=== PATIENT | male | born 1990 | race Two or more races ===

== ENCOUNTER 2022-01-06 15:48 | Emergency (ER) | payer MEDICAID, SELFPAY ==
[2022-01-06 19:08] VITALS: BP 129/98; PULSE 62; RESP 18; TEMP 37.2; O2SAT 96; BMI 26.6
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
[2022-01-06] MEDS: Amoxicillin/Potassium Clav 875 MG TABLET PO (20:24)
[2022-01-06] MEDS: Rabies Vaccine (PCEC)/PF 1 ML VIAL IM (20:24)
[2022-01-06] MEDS: Rabies Immune Globulin/PF 900 UNIT/3 ML VIAL 1632.94 UNIT IM (20:26)
[2022-01-06 21:38] VITALS: BP 129/73; PULSE 68; RESP 18; TEMP 36.7; O2SAT 100
--- NOTE | 2022-01-06 22:15 | PC.NURSE ---
Rabies vaccine packet completed by this RN and faxed to [facility]. Pt discharged with instructions to receive follow up vaccinations.
== END 2022-01-06 22:19 | disposition home or self-care (01) ==
PROVIDERS: Emergency Provider Internal Medicine
DX: S61.253A Open bite of left middle finger without damage to nail, initial encounter (principal); W55.01XA Bitten by cat, initial encounter; Y93.89 Activity, other specified; Y92.238 Other place in hospital as the place of occurrence of the external cause; Y99.9 Unspecified external cause status; Z20.3 Contact with and (suspected) exposure to rabies
CPT/HCPCS: 90375; 90471; 90675; 96372; 99283; 99284

== ENCOUNTER 2022-01-09 06:24 | Emergency (ER) | payer MEDICAID, SELFPAY ==
--- NOTE | ~2022-01-09 | CT_ITS ---
EXAMINATION: CT ABDOMEN AND PELVIS WITHOUT CONTRAST CLINICAL INFORMATION: Left flank pain COMPARISON: None TECHNIQUE: Multidetector volumetric imaging was performed from the superior aspect of the liver through the pubic symphysis. Sagittal and coronal reformatted images were obtained on the technologist's workstation. This CT examination was performed using dose optimization techniques as appropriate, variously including the following: *Automated exposure control *Adjustment of mA and/or kV according to patient size (this includes techniques or standardized protocols for targeted exams where dose is matched to indication/reason for exam; i.e. extremities or head) *Use of iterative reconstruction technique DLP: 541 mGy-cm FINDINGS: LUNG BASES: The visualized lung bases are unremarkable. LIVER, GALLBLADDER, AND BILIARY TREE: The liver is normal in size, shape, and attenuation. No focal hepatic lesion or biliary ductal dilatation is present. The gallbladder is unremarkable with no evidence of radiopaque gallstones, gallbladder wall thickening, or obvious pericholecystic inflammatory changes. PANCREAS: Unremarkable. SPLEEN: Unremarkable. ADRENAL GLANDS: Unremarkable. KIDNEYS AND URETERS: There is a 2 mm stone in the lower pole of the left kidney. There is mild left hydronephrosis and ureteral dilatation from a 3 mm left distal ureteral stone. The right kidney is normal. BLADDER: Unremarkable. GASTROINTESTINAL TRACT: The small and large bowel are unremarkable. The appendix is unremarkable. ABDOMINAL WALL: No significant hernia is appreciated. LYMPH NODES: Normal. VASCULAR: Unremarkable. PELVIC VISCERA: Unremarkable. OSSEOUS STRUCTURES: Unremarkable. CT/CT abdomen pelvis wo IV con IMPRESSION: Mild left hydronephrosis and ureteral dilatation from a small 3 mm left distal ureteral stone. Small left renal stone. Fleischner guidelines were followed.
[2022-01-09 06:58] VITALS: BP 148/105; PULSE 71; RESP 20; TEMP 36.8; O2SAT 97; BMI 26.6
[2022-01-09 07:32] VITALS: BP 130/82; PULSE 56; RESP 14; TEMP 37.1; O2SAT 100
--- NOTE | 2022-01-09 07:46 | ED.GENADULT ---
HPI - General Adult General Chief complaint: General Medical Stated complaint: Abd pain Time Seen by Provider: 01/09/22 07:45 Source: patient Mode of arrival: ambulatory Limitations: no limitations History of Present Illness HPI narrative: 31-year-old male came in for evaluation of abdominal pain. Pain started at 04:30 while he was sleeping, pain is mostly in the left flank area radiated to the left lower quadrant area and radiated to the left testicle, pain has been constant for the past 4 hours, described as severe dull aching pain, pain was associated with nausea, no relieving factor, no aggravating factor. Patient had similar pain 11 years ago when he had a kidney stone. No dysuria, no frequency, no penile discharge, no risk for STDs. Never had abdominal surgery in the past. Patient was bitten by cat 2 days ago patient is on amoxicillin and is due today for 2nd rabies immunization. Related Data Previous Rx's Medication Instructions Recorded amoxicillin 875 mg-potassium 1 tab PO BID cat bite 10 days #20 01/06/22 clavulanate 125 mg tablet tabs prednisone 10 mg tablet 10 mg PO BID #6 tabs 01/09/22 tamsulosin 0.4 mg capsule (Flomax) 0.4 mg PO DAILY #6 caps 01/09/22 Allergies Allergy/AdvReac Type Severity Reaction Status Date / Time No Known Allergies Allergy Verified 01/06/22 19:18 Review of Systems Review of Systems: All other systems are reviewed and are negative Constitutional: Reports as per HPI and Reports no additional constitutional complaints Eyes: Reports as per HPI and Reports no additional eye complaints Reports system reviewed and no additional complaints, except as documented Cardiovascular: Reports as per HPI and Reports no additional cardiovascular complaints Respiratory: Reports as per HPI and Reports no additional respiratory complaints Gastrointestinal: Reports as per HPI and Reports no additional gastrointestinal complaints Genitourinary: Reports no additional female genitourinary complaints Musculoskeletal: Reports no additional musculoskeletal complaints Skin/Breast: Reports system reviewed and no additional complaints, except as docu Psychiatric: Reports no additional psychiatric complaints Endocrine: Reports no additional endocrine complaints Hematologic/Lymphatic: Reports no additional hematologic/lymphatic complaints Allergic/Immunologic: Reports no additional allergic/immunologic complaints Reports system reviewed and no additional complaints, except as documented and Reports Abnormal speech present [facility] Social History Social History Advance Directives: No Advance Directives Information Provided: No Physical Exam ED Vital Signs: Vital Signs - 24 hr 01/09/22 06:58 01/09/22 07:32 Temperature 98.2 F 98.7 F Pulse Rate 71 56 Respiratory Rate 20 14 Blood Pressure 148/105 H 130/82 Pulse Oximetry 97 100 Oxygen Delivery Method Room Air Room Air BMI result Body Mass Index 26.6 Vital signs have been reviewed as appeared to be correct. Blood pressure normal. Heart rate normal. Respiration rate normal. Temperature normal. Oxygen saturation normal. Appearance: Alert. Oriented X3. No acute distress. Head: Normal external exam. Normocephalic. Atraumatic. No Yao signs noted. No raccoon eyes noted Eyes: PERRLA. EOMI. Conjunctiva and sclera normal. Eyelids normal. ENT: TM's Normal. Pharynx normal. Uvula midline. Moist mucous membranes. No trismus noted. No drooling noted. No muffled voice noted. Neck: Normal inspection. Neck supple. FROM. No adenopathy. Thyroid Normal. No meningeal signs. No neck mass noted. CVS: Normal heart rate and rhythm. Heart sound normal. No murmurs noted. Pulses normal throughout. Respiratory: No respiratory distress. Painless inspiration. Breath sounds normal. No wheezes/rales/rhonchi noted. Chest nontender. No accessory muscle usage noted or decreased air movement noted. Abdomen: Soft, left lower quadrant tenderness, no rebound tenderness, no guarding.. Bowel sounds normal in all 4 quadrants. No distention noted. No organomegaly noted. No visible injury noted. Back: Left CVA tenderness. Full range of motion noted. exam: Intact cremasteric reflex bilaterally, testicular swelling or tenderness. Skin: Skin warm and dry. Normal skin color. Normal skin turgor. No rashes/lesions/lacerations noted. Extremities: No lower extremity edema. Extremities exhibit normal range of motion. Extremities nontender. Neuro: Oriented X 3. Cranial nerve exam: II-XII are grossly intact No motor deficit. No sensory deficit. Reflexes normal. Course Course Course Narrative: Left flank pain due to 3 mm distal left ureteral stone. Will start the patient on couple days of prednisone and Flomax and was encouraged to drink plenty of fluid patient has no urinary symptoms, no dysuria or urinary frequency. Patient is due for 2nd rabies vaccination after was bitten by a cat with unclear immunization patient is on Augmentin for prophylactic cat bite infection. Medical Decision Making Medical Records Medical records reviewed: Yes I reviewed the patient's medical records. Lab Data Lab results reviewed: Yes I reviewed the patient's lab results. Result diagrams: 01/09/22 08:16 01/09/22 08:16 Labs: Lab Results 01/09/22 01/09/22 01/09/22 Range/Units 08:16 08:16 08:30 WBC 10.5 (4.8-10.8) X10*3/uL RBC 5.47 (4.60-5.80) X10*6/uL Hgb 16.5 (14.0-18.0) g/dl Hct 46.7 (42.0-52.0) % MCV 85.4 (80.0-98.0) fL MCH 30.2 (27.0-33.0) pg MCHC 35.3 (31.0-36.0) g/dl RDW 11.4 (11.0-16.0) % Plt Count 232 (160-400) X10*3/uL MPV 9.4 (9.4-12.4) fL Immature Gran % (Auto) 0.3 (0.0-0.4) % Neut % (Auto) 82.2 H (45-73) % Lymph % (Auto) 10.6 L (20-40) % Atkinson % (Auto) 6.0 (2-11) % Eos % (Auto) 0.6 (0-4) % Baso % (Auto) 0.3 (0-2) % Lymph # (Auto) 1.1 L (1.2-4.9) X10*3/uL Atkinson # (Auto) 0.6 (0.1-1.2) X10*3/uL Eos # (Auto) 0.1 (0.0-0.4) X10*3/uL Baso # (Auto) 0.0 (0.0-0.2) X10*3/uL Abs Immat Gran (auto) 0.03 (0.00-0.03) X10*3/uL Absolute Neuts (auto) 8.6 H (2.0-8.3) x10*3/uL Absolute Nucleated RBC 0.000 (0.0-0.012) X10*3/uL Nucleated RBC % (auto) 0.0 (0.0-0.2) /100WBC Sodium 141 (135-145) mmol/L Potassium 4.7 (3.3-5.1) mmol/L Chloride 103 (96-108) mmol/L Carbon Dioxide 26 (22-29) mmol/L Anion Gap 17 (12-20) BUN 22 H (9-16) mg/dL Creatinine 1.23 (0.5-1.4) mg/dL Estim Creat Clear Calc 87.8 Estimated GFR > 60 Random Glucose 99 (60-115) mg/dL Calcium 10.2 (8.4-10.2) mg/dL Total Bilirubin 1.0 (0.0-1.0) mg/dL Direct Bilirubin 0.4 (0.0-0.5) mg/dL AST 30 (5-37) U/L ALT 29 (0-40) U/L Alkaline Phosphatase 87 (39-117) U/L Total Protein 7.7 (6.5-8.0) g/dL Albumin 4.7 (3.5-5.0) g/dL Lipase 22 (8-78) U/L Urine Color Yellow Urine Appearance Clear Urine pH 7.0 (5.0-9.0) Ur Specific [place] 1.020 (1.005-1.025) Urine Protein Trace (Neg-Trace) mg/dL Urine Glucose (UA) Negative (Negative) mg/dL Urine Ketones 40 (Negative) mg/dL Urine Blood Large (3+) H (Negative) Urine Nitrite Negative (Negative) Ur Leukocyte Esterase Trace H (Negative) Urine RBC >20 H (0-2) /HPF Urine WBC 0-5 (0-5) /HPF Ur Squamous Epith Cells 0-2 (0-2) /HPF Urine Bacteria None Seen (None Seen) Hyaline Casts 3-5 (0-2) /LPF Imaging Data CT abdomen and pelvis: Attestation: I personally reviewed and interpreted this imaging study as follows: Radiologist's impression: Mild left hydronephrosis and ureteral dilatation from a small 3 mm left distal ureteral stone. Small left renal stone. Fleischner guidelines were followed. Discharge Plan Discharge Clinical Impression: Left ureteral stone, Cat bite of finger Patient Disposition: Home, Self-Care Instructions: Ureteral Stones (ED) Prescriptions: New tamsulosin [Flomax] 0.4 mg capsule 0.4 mg PO DAILY Qty: 6 0RF prednisone 10 mg tablet 10 mg PO BID Qty: 6 0RF No Action amoxicillin-pot clavulanate 875-125 mg tablet 1 tab PO BID 10 Days Qty: 20 0RF Referrals: [facility] [Primary Care Provider] - David Roger MD [Physician] -
[2022-01-09 08:20] LABS: MANUAL DIFF FLAG NO
[2022-01-09 08:21] LABS: Basophils Percent Auto 0.3 % (0-2); Eosinophils Absolute Auto 0.1 X10*3/uL (0.0-0.4); Eosinophils Percent Auto 0.6 % (0-4); Hematocrit 46.7 % (42.0-52.0); Hemoglobin 16.5 g/dl (14.0-18.0); Imm Gran Abs Auto 0.03 X10*3/uL (0.00-0.03); Imm Gran Pct Auto 0.3 % (0.0-0.4); Lymphocytes Absolute Auto 1.1 X10*3/uL (1.2-4.9); Lymphocytes Percent Auto 10.6 % (20-40); Mean Corpuscular HGB Conc 35.3 g/dl (31.0-36.0); Mean Corpuscular Hemoglobin 30.2 pg (27.0-33.0); Mean Corpuscular Volume 85.4 fL (80.0-98.0); Mean Platelet Volume 9.4 fL (9.4-12.4); Monocytes Absolute Auto 0.6 X10*3/uL (0.1-1.2); Neutrophils Absolute Auto 8.6 x10*3/uL (2.0-8.3); Neutrophils Percent Auto 82.2 % (45-73); Platelet Count 232 X10*3/uL (160-400); Red Blood Count 5.47 X10*6/uL (4.60-5.80); Red Cell Distribution Width 11.4 % (11.0-16.0); White Blood Count 10.5 X10*3/uL (4.8-10.8)
[2022-01-09 08:38] LABS: Appearance Urine Clear; Color Urine Yellow; Glucose Urine UA Negative (Negative); Leukocyte Esterase Urine Trace (Negative); Nitrite Urine Negative (Negative); UMIC TRIGGER UACC YES; Urine Blood Large (3+) (Negative); Urine Ketones 40 mg/dL (Negative); Urine Protein Trace mg/dL (Neg-Trace)
[2022-01-09 08:43] LABS: Bacteria Urine None Seen (None Seen); RBC Urine >20 /HPF (0-2); Squamous Epithelial Cell Urine 0-2 /HPF (0-2); WBC Urine 0-5 /HPF (0-5)
[2022-01-09 08:46] LABS: Alanine Aminotransferase 29 U/L (0-40); Albumin Level 4.7 g/dL (3.5-5.0); Alkaline Phosphatase 87 U/L (39-117); Anion Gap 17 (12-20); Aspartate Amino Transferase 30 U/L (5-37); Bilirubin Direct 0.4 mg/dL (0.0-0.5); Blood Urea Nitrogen 22 mg/dL (9-16); Calcium 10.2 mg/dL (8.4-10.2); Carbon Dioxide 26 mmol/L (22-29); Chloride 103 mmol/L (96-108); Creatinine Clr Calc Pharmacy 87.8; Estimated Glomerular Filt Rate > 60; Glucose Random 99 mg/dL (60-115); Lipase 22 U/L (8-78); Potassium 4.7 mmol/L (3.3-5.1); Sodium 141 mmol/L (135-145); Total Protein 7.7 g/dL (6.5-8.0)
[2022-01-09] MEDS: Rabies Vaccine (PCEC)/PF 1 ML VIAL IM (10:12)
--- NOTE | 2022-01-09 10:18 | PC.NURSE ---
patient a/ox4 . Patient given Rabies vaccination according to schedule . Patient was offered pain medication as ordered but declined stating his pain had resolved . went over discharge instructions as ordered by provider . Patient to return to same day for subsequent Rabies sequence . patient aware of plan of care . patient has no questions at this time .
== END 2022-01-09 10:22 | disposition home or self-care (01) ==
PROVIDERS: Emergency Provider Emergency Medicine
DX: N13.2 Hydronephrosis with renal and ureteral calculous obstruction (principal); W55.01XD Bitten by cat, subsequent encounter; Z20.3 Contact with and (suspected) exposure to rabies
CPT/HCPCS: 36415; 74176; 80048; 80076; 81001; 83690; 85025; 90471; 90675; 99283

== ENCOUNTER 2022-01-13 15:11 | Outpatient (REF) | payer MEDICAID, SELFPAY | END 2022-01-13 15:12 | disposition home or self-care (01) | LOC: HO.MDS 15:11 | PROVIDERS: Visit Provider Physician Assistant Medical | DX: Z29.14 Encounter for prophylactic rabies immune globulin (principal); S61.253D Open bite of left middle finger without damage to nail, subsequent encounter; W55.01XD Bitten by cat, subsequent encounter; Z20.3 Contact with and (suspected) exposure to rabies; R10.32 Left lower quadrant pain; N13.2 Hydronephrosis with renal and ureteral calculous obstruction; N13.4 Hydroureter | CPT/HCPCS: 90471; 90675 ==

== ENCOUNTER 2022-01-20 10:04 | Outpatient (REF) | payer MEDICAID, SELFPAY | END 2022-01-20 10:05 | disposition home or self-care (01) | LOC: HO.MDS 10:04 | PROVIDERS: Visit Provider Physician Assistant Medical | DX: Z29.14 Encounter for prophylactic rabies immune globulin (principal); S61.253D Open bite of left middle finger without damage to nail, subsequent encounter; W55.01XD Bitten by cat, subsequent encounter; Z20.3 Contact with and (suspected) exposure to rabies | CPT/HCPCS: 36430; 90675 ==

== ENCOUNTER 2022-05-05 12:31 | Outpatient (REF) | payer MEDICAID, SELFPAY ==
--- NOTE | 2022-05-05 08:30 | EMG_ITS ---
Please see scanned EMG / Nerve Conduction Report. MTDD
== END 2022-05-05 12:32 | disposition home or self-care (01) ==
LOC: HO.NEURO 12:31
PROVIDERS: Visit Provider Registered Nurse
DX: M25.531 Pain in right wrist (principal); M25.532 Pain in left wrist
CPT/HCPCS: 95885; 95913

== ENCOUNTER 2024-10-09 10:24 | Outpatient (REF) | payer MEDICAID, SELFPAY ==
--- NOTE | ~2024-10-09 | XR_ITS ---
EXAMINATION: XR ABDOMEN KUB CLINICAL INDICATION: Left flank pain for 7 days COMPARISON: None available. TECHNIQUE: AP view of the abdomen. FINDINGS: There appears to be iodinated contrast in the bladder. 2 Vague punctate densities in the left hemipelvis, cephalad to the bladder, could represent phleboliths or distal ureteral stones, bowel content, or other density. No other areas are strongly suggestive stones. Bowel gas pattern is within normal limits. SI joints are unremarkable. Hip joints are unremarkable. XR/XR KUB IMPRESSION: Nonspecific punctate calcific densities in the left hemipelvis could represent phleboliths, distal ureteral stones, or other density Electronically signed by: Swapnil Callahan MD 10/09/2024 10:49 AM EDT
--- OUTSIDE RECORDS SUMMARY | 2024-10-09 11:34 | XMS_ITS | Encounter Summary ---
Author Organization [employer] [facility] Address [address] [place] [address] 7 [place] [address] Care Team Providers Care Professor Of Violin Name Role Phone Rizwana IvanP Primary Care Provider [phone] Falguni Copeland DOUGHNUT MACHINE OPERATOR HELPER Primary Care Provider [phone] Jane Wilkinson DOUGHNUT MACHINE OPERATOR HELPER Primary Care Provider [phone] Encounter Details Date Type Department Care Team (Late st Contact Info) Description 12/30/2022 Abstract [facility] [address] [place] [address] Flaquito Hernandez, SABA [address] [place] [address] Social History Tobacco Use Types Packs/Day Years Used Date Smoking Tobacco: Every Day Cigarettes Smokeless Tobacco: Never Alcohol Use Standard Drinks/Week Comments Never 0 (1 standard drink = 0.6 oz pur e alcohol) Sex and Gender Information Value Date Recorded Sex Assigned at Male 02/08/2022 10:39 AM EDT Legal Sex Male 10:39 AM EDT Gender Identity Male 02/08/2022 10:39 AM EDT Sexual Orientation Straight 02/08/2022 10 :39 AM EDT documented as of this encounter Plan of Treatment Not on file documented as of this encounter Visit Diagnoses Not on filedocumented in this encounter Care Teams Professor Of Violin Relationship Specialty Start Date End Date Rizwana Ivan FNP PCP - General Family Medicine 12/07/21 01/13/23 Falguni Copeland NP [address] [place] [address] PCP - General Family Medicine 01/14/23 05/15/23 Jane Wilkinson NP [address] [place] [id number] PCP - General Family Medicine 05/16/23 documented as of this encounter
== END 2024-10-09 10:25 | disposition home or self-care (01) ==
LOC: HO.HHCX 10:24
PROVIDERS: Visit Provider Internal Medicine
DX: R10.9 Unspecified abdominal pain (principal)
CPT/HCPCS: 74018

== ENCOUNTER → 2024-10-09 10:25 | Outpatient (BNV) | payer MEDICAID, SELFPAY | PROVIDERS: Visit Provider Radiology Diagnostic Radiology | DX: R10.9 Unspecified abdominal pain (principal) | CPT/HCPCS: 74018 ==

== ENCOUNTER 2024-11-15 09:50 | Outpatient (REF) | payer OTHER, SELFPAY | END 2024-11-15 09:51 | disposition home or self-care (01) | LOC: HO.LAB 09:50 | PROVIDERS: PCP Internal Medicine; Visit Provider Nurse Practitioner Family | DX: N20.0 Calculus of kidney (principal); R31.29 Other microscopic hematuria; R10.9 Unspecified abdominal pain; N40.1 Benign prostatic hyperplasia with lower urinary tract symptoms; R35.1 Nocturia | CPT/HCPCS: 81003; 88112 ==

== ENCOUNTER 2024-11-15 09:50 | Outpatient (AMB) | payer OTHER, SELFPAY ==
--- NOTE | 2024-11-15 09:57 | A.OFFVIS_ITS ---
Intake Visit Reasons: kidney stones Intake Note: Patient is present for KIDNEY STONES Urology Medication:NONE Antibiotic Allergy:NONE Blood Thinner:NONE Manager Retail Sales Required: No Allergies No Known Allergies Allergy (Verified 11/15/24 09:58) HPI Comments Details: Jefry is a pleasant 34-year-old male patient of Dr. Sreedhar Storey. He presents to the office today as a new patient for nephrolithiasis. In discussion with the patient today he reports a longstanding history of nephrolithiasis since the age of [age] years old. He discusses over the last 1 month he has been experiencing intermittent flank pain that initially started on the left side however most recently this week on Tuesday started experiencing right-sided flank pain. In review of patient's chart it as appear KUB 10/09 noted nonspecific punctate calcific densities in the left hemipelvis could represent phleboliths, distal ureteral stones, or other density. He reports a longstanding history of nephrolithiasis however never requiring surgical intervention. He does report following up with a previous urologist many years ago however does not recall providers name. He does feel he has had intermittent episodes of changes with his urinary stream. He denies urinary urgency, urinary frequency, incontinence, nocturia, hematuria, dysuria, foul smelling urine, fever, and or chills. In office urinalysis results reviewed with the patient today microscopic hematuria noted otherwise within normal limits. When asked he does report a smoking history of recreational marijuana 2-3 times per week he otherwise denies any nicotine dependence and or workplace chemical exposure. We did discussed potential causes of microscopic hematuria as well as nephrolithiasis. All questions were answered. He otherwise offers no other issues or concerns at this time. Review of Systems Const All systems reviewed & are unremarkable except as noted in HPI and below Physical Exam Const General: cooperative, healthy appearing, comfortable, no acute distress, well developed, alert and awake Orientation/consciousness: patient oriented x3 Limitations: no limitations HEENT Head: Yes normal to inspection, Yes normocephalic and Yes atraumatic Ears: hearing grossly normal bilaterally Eyes General: appearance normal, both eyes and all related structures Neck Neck: Yes normal visual inspection and Yes trachea midline Chest Chest palpation & inspection: normal inspection of the chest Resp Effort & Inspection: normal respiratory effort and able to speak in complete sentences Cardio Rate: regular rate GI Inspection: Yes normal to inspection General: Yes no CVA tenderness Back/Spine/Pelvis Back: no CVA tenderness Skin General skin exam: no rashes or lesions noted Neuro General: patient oriented x3 Extrem General: Yes normal to inspection Psych Appearance: grossly normal and well kempt Mental Status: mental status grossly normal Speech and movement: Normal speech and movement present and Clear speech present Affect: normal affect Attitude: cooperative Thought process: Normal thought process present Thought content: Normal thought content present Insight: Fair insight present (Psych) Judgement: Fair judgement present (Psych) Results AMB Urinalysis, Automated UA Leukoctes 0 Toribio/uL Last Edit by ADITI Deshpande on 11/15/24 10:10 UA Nitrite Negative Last Edit by ADITI Deshpande on 11/15/24 10:10 UA Urobilinogen 0.2 mg/dL Last Edit by Anju Maciel CCM on 11/15/24 10:1 0 UA Protein 15 mg/dL Last Edit by Anju Maciel CCM on 11/15/24 10:10 UA pH 6.5 Last Edit by Anju Maciel CCM on 11/15/24 10:10 UA Blood 10 Arthur/uL Last Edit by Anju Maciel CCM on 11/15/24 10:10 UA Specific [place] 1.015 Last Edit by ADITI Deshpande on 11/15/24 10: 10 UA Ketone Negative Last Edit by ADITI Deshpande on 11/15/24 10:10 UA Bilirubin 0 mg/dL Last Edit by Anju Maciel CCM on 11/15/24 10:10 UA Glucose 0 mg/dL Last Edit by Anju Maciel [facility] on 11/15/24 10:10 Results Reviewed Results Reviewed: Laboratory Last Values Urine pH (Auto) 6.5 11/15/24 10:10 Specific [place] (Auto) 1.015 11/15/24 10:10 Urine Protein (Auto) 15 mg/dL 11/15/24 10:10 Glucose (UA)(Auto) 0 mg/dL 11/15/24 10:10 Urine Ketones (Auto) Negative 11/15/24 10:10 Urine Blood (Auto) 10 Arthur/uL 11/15/24 10:10 Urine Nitrite (Auto) Negative 11/15/24 10:10 Urine Bilirubin (Auto) 0 mg/dL 11/15/24 10:10 Urine Urobilinogen (Auto) 0.2 mg/dL 11/15/24 10:10 Leukocyte Esterase (Auto) 0 Toribio/uL 11/15/24 10:10 Date of Service: 10/09/24 Procedure(s): XR KUB FINDINGS: There appears to be iodinated contrast in the bladder. 2 Vague punctate densities in the left hemipelvis, cephalad to the bladder, could represent phleboliths or distal ureteral stones, bowel content, or other density. No other areas are strongly suggestive stones. Bowel gas pattern is within normal limits. SI joints are unremarkable. Hip joints are unremarkable. IMPRESSION: Nonspecific punctate calcific densities in the left hemipelvis could represent phleboliths, distal ureteral stones, or other density Assessment & Plan Assessment & Plan (1) Microscopic hematuria: Code(s): R31.29 - Other microscopic hematuria Category: Medical Plan In office urinalysis results reviewed the patient today; as noted above; will send for urine cytology. Will obtain CT KUB for further assessment evaluation. We discussed importance of adequate hydration relation to nephrolithiasis as well as overall health and well-being. Start Flomax. We discussed adding 1 oz of lemon juice to water daily. We discussed worsening symptoms. We discussed potential causes of microscopic hematuria, nephrolithiasis, and flank pain; we discussed further interventions and risks and benefits of these interventions. All questions were answered. Follow-up in 2-4 weeks with imaging; or sooner with any issues, concerns, and or questions. Orders: Orders Urine Cytology Today R31.29 - Other microscopic hematuria CT kidney stone Today N20.0 - Calculus of kidney, R10.9 - Unspecified abdominal pain, R31.29 - Other microscopic hematuria AMB Urinalysis Automated Today Z13.9 - Encounter for screening, unspecified Medications: New tamsulosin 0.4 mg PO BEDTIME 30 days 30 caps 1RF N40.1 - Benign prostatic hyperplasia with lower urinary tract symptoms, R35.1 - Nocturia tamsulosin 0.4 mg PO BEDTIME 30 caps 1RF 30 days N40.1 - Benign prostatic hyperplasia with lower urinary tract symptoms, R35.1 - Nocturia Patient Instructions: The patient had an opportunity to ask questions regarding the treatment plan. All questions were answered. Physical exam, labs, and imaging were discussed and reviewed in detail. As well as risks, benefits, and discussion of treatment choices. No major barriers to understanding were identified. The patient expressed understanding and agreement with the above treatment plan. The patient was made aware they should contact our office by phone for worsening of their current condition, the appearance of new symptoms, or with any questions or concerns. Compliance is encouraged with any medications and follow up testing that is ordered. It is a privilege to be allowed the opportunity to participate in? your urological care.? Again, if you have any questions or concerns If you have any questions or concerns please do not hesitate to contact me. The office is [phone]. This note is constructed using voice recognition software. While every effort has been made to ensure accuracy high school combination teacher errors may have been included. Yours sincerely, JONAH Ramos Coding Level of Care Code New Pt Level 4 (85955) Diagnoses Microscopic hematuria R31.29
--- OUTSIDE RECORDS SUMMARY | 2024-11-15 10:21 | XMS_ITS | Encounter Summary ---
Author Organization [employer] Address [address] [place] [address] [address] [place] [address] Care Team Providers Care Template Maker Name Role Phone Rizwana IvanP Primary Care Provider Xochilt hoseailable Falguni Copeland SPORT INTERNSHIP Primary Care Provider [phone] Jane Wilkinson SPORT INTERNSHIP Primary Care Provider Encounter Details Date Type Department Care Team (Late st Contact Info) Description 12/30/2022 Abstract [facility] ADULT DENTAL [address] [place] [address] Flaquito Hernandez DMD [address] [place] [address] Social History Tobacco Use Types Packs/Day Years [...] on filedocumented in this encounter Care Teams Template Maker Relationship Specialty Start Date End Date Rizwana Ivan FNP PCP - General Family Medicine 12/07/21 01/13/23 Falguni Copeland NP [address] [place] [address] PCP - General Family Medicine 01/14/23 05/15/23 Jane Wilkinson NP [address] [place] [address] PCP - General Family Medicine 05/16/23 documented as of this encounter
== END 2024-11-15 10:39 | disposition home or self-care (01) ==
LOC: HO.HUSH 09:51
PROVIDERS: PCP Internal Medicine; Visit Provider Nurse Practitioner Family
DX: Z13.9 Encounter for screening, unspecified (principal); R31.29 Other microscopic hematuria
CPT/HCPCS: 99204

== ENCOUNTER 2024-12-08 07:51 | Outpatient (REF) | payer OTHER, SELFPAY ==
--- NOTE | ~2024-12-08 | CT_ITS ---
CLINICAL HISTORY: R31.29 - Other microscopic hematuria Exam: CT abdomen and pelvis without IV contrast Comparison: None provided Findings: The lack of intravenous contrast hampers the evaluation of solid organs and the ability to detect and characterize soft tissue abnormalities. Normal lung bases. Punctate calyceal calculus right kidney lower pole, no additional urolithiasis, no obstructive uropathy. Gallbladder, solid organs and urinary bladder are unremarkable. GI tract demonstrates nothing unusual, normal appendix. Unremarkable vasculature, no adenopathy, no ascites or pneumoperitoneum. Normal abdominopelvic wall. Unremarkable osseous structures. Impression: Punctate nonobstructing right renal calculus. This document has been electronically signed by: Kasia Mojica MD on 12/11/2024 14:12:19
--- OUTSIDE RECORDS SUMMARY | 2024-12-08 07:54 | XMS_ITS | Encounter Summary ---
Author Organization [employer] Address [address] [facility] 7 [place] [address] Care Team Providers Care Postulant Name Role Phone Rizwana Ivan CURRENCY COUNTER Primary Care Provider Xochilt Falguni Crow GENERATOR REPAIRER Primary Care Provider [phone] Jane Wilkinson GENERATOR REPAIRER Primary Care Provider [phone] Reason for Visit * Reason Onset Date Comments new pt waiting appt 09/23/2022 Encounter Details Date Type Department Care Team (Late st Contact Info) Description 09/23/2022 Telephone [facility] ADULT DENTAL [address] [place] [address] Morgan Leal DDS [address] [place] [address] new pt waiting appt Social History Tobacco Use Types Packs/Day Years Used Date Smoking Tobacco: Never Assessed Sex and Gender Information Value Date Recorded Sex Assigned at Male 02/08/2022 10:39 AM EDT Legal Sex Male 10:39 AM EDT Gender Identity Male 02/08/2022 10:39 AM EDT Sexual Orientation Straight 02/08/2022 10 :39 AM EDT documented as of this encounter Miscellaneous Notes * Telephone Encounter - Gabby Eason - 09/23/2022 2:02 PM EDT Patient has been on waiting list in [facility] since 04/2021. He is checking in on status of appt and would like to be scheduled DR documented in this encounter Plan of Treatment Not on file documented as of this encounter Visit Diagnoses Not on filedocumented in this encounter Care Teams Postulant Relationship Specialty Start Date End Date Rizwana Ivan FNP PCP - General Family Medicine 12/07/21 01/13/23 Falguni Copeland NP [address] [place] [address] PCP - General Family Medicine 01/14/23 05/15/23 Jane Wilkinson NP [address] [place] [address] PCP - General Family Medicine 05/16/23 documented as of this encounter
--- OUTSIDE RECORDS SUMMARY | 2024-12-08 07:54 | XMS_ITS | Encounter Summary ---
Author Organization [employer] Address [address] [facility] [address] [place] [address] Care Team Providers Care Precipitation Equipment Tender Name Role Phone Rizwana IvanP Primary Care Provider Xochilt Falguni Crow POWERHOUSE TENDER Primary Care Provider [phone] Jane Wilkinson POWERHOUSE TENDER Primary Care Provider [phone] Encounter Details Date Type Department Care Team (Late st Contact Info) Description 12/23/2022 Abstract [facility] ADULT DENTAL [address] [place] [address] Flaquito Hernandez DMD [address] [place] [address] Social History Tobacco Use Types Packs/Day Years [...] on filedocumented in this encounter Care Teams Precipitation Equipment Tender Relationship Specialty Start Date End Date Rizwana Ivan FNP PCP - General Family Medicine 12/07/21 01/13/23 Falguni Copeland NP [address] [place] [address] PCP - General Family Medicine 01/14/23 05/15/23 Jane Wilkinson NP [address] [place] [address] PCP - General Family Medicine 05/16/23 documented as of this encounter
--- OUTSIDE RECORDS SUMMARY | 2024-12-08 07:54 | XMS_ITS | Encounter Summary ---
Author Organization [employer] Address [address] [facility] [address] [place] [address] Care Team Providers Care Intervention Specialist Name Role Phone Rizwana IvanP Primary Care Provider Xochilt Falguni Crow CLIENT RELATION SPECIALIST Primary Care Provider [phone] Jane Wilkinson CLIENT RELATION SPECIALIST Primary Care Provider [phone] Encounter Details Date Type Department Care Team (Late st Contact Info) Description 12/30/2022 Abstract [facility] ADULT DENTAL [address] [place] [address] Flaquito Hernandez DMD [address] [place] [address] Social History Tobacco Use Types Packs/Day Years [...] on filedocumented in this encounter Care Teams Intervention Specialist Relationship Specialty Start Date End Date Rizwana Ivan FNP PCP - General Family Medicine 12/07/21 01/13/23 Falguni Copeland NP [address] [place] [address] PCP - General Family Medicine 01/14/23 05/15/23 Jane Wilkinson NP [address] [place] [address] PCP - General Family Medicine 05/16/23 documented as of this encounter
--- OUTSIDE RECORDS SUMMARY | 2024-12-08 07:54 | XMS_ITS | Encounter Summary ---
Author Organization [employer] Address [address] [facility] [address] [place] [address] Care Team Providers Care Computer Forensics Investigator Name Role Phone Jane Wilkinson NP Primary Care Provider [phone] Encounter Details Date Type Department Care Team (Late st Contact Info) Description 11/01/2024 Orders Only [facility] MEDICINE [address] [place] [address] Estephanie Larkin MD [address] [place] [address] Kidney stone (Primary Dx) Social History Tobacco Use Types Packs/Day Years Used Date Smoking Tobacco: Some Days Cigars Smokeless Tobacco: Never Alcohol Use Standard Drinks/Week [...] documented as of this encounter Visit Diagnoses Diagnosis Kidney stone- Primary Calculus of kidney documented in this encounter Care Teams Computer Forensics Investigator Relationship Specialty Start Date End Date Jane Wilkinson NP [address] [place] [address] PCP - General Family Medicine 05/16/23 documented as of this encounter
--- OUTSIDE RECORDS SUMMARY | 2024-12-08 07:54 | XMS_ITS | Clinical Summary ---
Author Organization [employer] Address [address] [facility] [address] [place] [address] Care Team Providers Care Lay Out Technician Name Role Phone Jane Wilkinson NP Primary Care Provider [phone] Allergies No known active allergies Medications tamsulosin (Flomax) 0.4 MG 24 hr capsuleIndicati ons:Left flank pain Take 1 capsule (0.4 mg) by mouth Once per day. 30 capsule 10/09/2024 Active Blood Pressure kit 1 each 2 times daily. 1 kit 11/20/2024 Active amoxicillin-cla vulanate (Augmentin) 875-125 MG tablet Take 1 tablet by mouth 2 times daily. 14 tablet 11/20/2024 Active Active Problems Problem Noted Date Diagnosed Date Left flank pain 10/09/2024 Assessment & Plan (10/09/2024 10:44 AM EDT): Kidney stone is suspected I will order a KUB x-ray, if it is positive I will likely order a CT I will prescribe for patient is on Flomax and also some tramadol short course for pain ED precautions were reviewed with patient Bilateral wrist pain 05/07/2022 Kidney stone 01/25/2022 Encounters Date Type Department Care Team Description 11/20/2024 10:20 AM EDT Office Visit [facility] [address] [place] [phone] Nick Jean MD Impacted cerumen of right ear (Primary Dx); Non-recurrent acute suppurative otitis media of right ear without spontaneous rupture of tympanic membrane; Elevated blood pressure reading in office without diagnosis of hypertension 11/20/2024 Travel 11/15/2024 Orders Only GENERIC EXTERNAL DATA DEPARTMENT Provider, Generic External Data 11/13/2024 Telephone [facility] [address] [place] [phone] Jane Wilkinson NP Med Refill; Medication Question 11/01/2024 Orders Only [facility] [address] [place] [id number] Estephanie Larkin MD Kidney stone (Primary Dx) 11/01/2024 Telephone [facility] [address] [place], [place] [phone] Estephanie Larkin MD 10/09/2024 10:00 AM EDT Office Visit [facility] [address] [place] [phone] Estephanie Larkin MD Left flank pain; Kidney stone 10/09/2024 Results Follow-Up [facility] [address] [place] [phone] Estephanie Larkin MD XR KUB and Upright 2 Views 10/09/2024 Orders Only [facility] [address] [place] [phone] Estephanie Larkin MD Kidney stone (Primary Dx) 10/09/2024 Travel from Last 3 Months Immunizations Immunization Administration Dates Next Due INFLUENZA INJECTABLE QUADRIV ALANT CCIIV4 MDCK Multi-dose vial 04/20/2021 Influenza injectable quadrivalent preservative f ree 01/28/2022 Influenza, seasonal, injectable, preservative fr ee 01/18/2024 Rabies - IM Fibroblast Culture 01/09/2022,2021 Tdap 07/02/2021 Social History Tobacco Use Types Packs/Day Years Used Date Smoking Tobacco: Some Days Cigars Smokeless Tobacco: Never Tobacco Cessation:Ready to Q uit: Not Asked; Counseling Given: Not Answered Alcohol Use Standard Drinks/Week Comments Never 0 (1 standard drink = 0.6 oz pur e alcohol) Sex and Gender Information Value Date Recorded Sex Assigned at Male 02/08/2022 10:39 AM EDT Legal Sex Male 10:39 AM EDT Gender Identity Male 02/08/2022 10:39 AM EDT Sexual Orientation Straight 02/08/2022 10 :39 AM EDT Last Filed Vital Signs Vital Sign Reading Time Taken Comments Blood Pressure 131/87 11/20/2024 10:48 AM EDT Pulse 56 11/20/2024 10:11 AM EDT Temperature 36.8 C (98.2 F) 11/20/2024 10:11 AM EDT Respiratory Rate 18 11/20/2024 10:11 AM EDT Oxygen Saturation 97% 11/20/2024 10:11 AM EDT Inhaled Oxygen Concentration - - Weight 82.8 kg (182 lb 9.6 oz) 11/20/2024 10:11 AM EDT Height 173 cm (5' 8.11 ) 10/09/2024 10:02 AM EDT Body Mass Index 27.67 10/09/2024 10:02 AM EDT Plan of Treatment Health Maintenance Due Date Last Done Comments Depression Screening 1991 HIV Screening 1991 Lipid Panel 1991 SDOH Screening 1991 Alcohol/Substance Use Screening 2003 Family Planning (PISQ) 2006 HPV Vaccines (1 - Male 3-dose series) 2006 Hepatitis C Screening 2009 Hepatitis B Vaccines (1 of 3 - 19+ 3-dose series) 2010 Pneumococcal Vaccine: Pediatrics (0 to 5 Years) and At-Risk Patients (6 to 49) Years (1 of 2 - PCV) 2010 Dental Oral Exam 04/08/2023 10/06/2022 Dental Prophylaxis 04/23/2023 10/20/2022 Dental X-Ray: Bitewings 10/08/2023 10/06/2022 COVID-19 Vaccine ( - season) 2023 05/14/2021, 04/20/2021 Influenza Vaccine (#1) 2024 , 01/18/2023, 01/28/2022, Additional history exists Dental X-Ray: Full Mouth 10/07/2025 10/06/2022 Disability Screening 11/20/2025 11/20/2024 Tobacco Screening 11/20/2025 11/20/2024 DTaP/Tdap/Td Vaccines (2 - Td or Tdap) 07/03/2031 07/02/2021 Zoster Vaccines (1 of 2) 2041 RSV Patients and Patients Aged 60 years or older (1 - 1-dose 75+ series) 2066 HIB Vaccines Aged Out No longer eligi ble based on patient's age to complete this topic Hepatitis A Vaccines Aged Out No long er eligible based on patient's age to complete this topic IPV Vaccines Aged Out No longer eligi ble based on patient's age to complete this topic Meningococcal B Vaccine Aged Out No l onger eligible based on patient's age to complete this topic Meningococcal Vaccine Aged Out No isi swapna eligible based on patient's age to complete this topic RSV under 20 months Aged Out No longe r eligible based on patient's age to complete this topic Rotavirus Vaccines Aged Out No longer eligible based on patient's age to complete this topic Procedures Procedure Name Priority Date/Time Associated Diagnosis Comments NE REMOVAL IMPACTED CERUMEN IRRIGATION/LVG UNILAT Routine 11/20/2024 11:12 AM EDT Impacted cerumen of right ear CYTOPATH-CELL ENHANCED Routine 11/15/2024 5:11 PM EDT POCT URINALYSIS DIPSTICK Routine 10/09/2024 10:21 AM EDT Kidney stone XR KUB AND UPRIGHT 2 VIEWS Routine 10/09/2024 9:48 AM EDT Left flank pain PROPHYLAXIS - ADULT Routine 10/20/2022 1 0:00 AM EDT INTRAORAL - COMPLETE SERIES OF RADIOGRAPHIC IMAGES Routine 10/06/2022 10:30 AM EDT PERIODIC ORAL EVALUATION - ESTABLISHED PATIENT Routine 10/06/2022 10:30 AM EDT from Last 3 Months or Most Recently Relevant to Health Maintenance Results * NE REMOVAL IMPACTED CERUMEN IRRIGATION/LVG UNILAT (11/20/2024 11:12 AM EDT) Narrative Chitra Chaparro RN - 11/20/2024 11:12 AM EDT Chitra Chaparro RN 11/20/2024 3:04 PM Ear Cerumen Removal Date/Time: 11/20/2024 11:12 AM Performed by: Chitra Chaparro RN Authorized by: Nick Jean MD Consent: Consent obtained: Verbal Consent given by: Patient Risks, benefits, and alternatives were discussed: yes Risks discussed: Bleeding, dizziness, incomplete removal and pain Alternatives discussed: Alternative treatment [place] protocol: Procedure explained and questions answered to patient or proxy's satisfaction: yes Relevant documents present and verified: yes Test results available: no Imaging studies available: no Required blood products, implants, devices, and special equipment available: no Site/side marked: yes Immediately prior to procedure, a time out was called: yes Patient identity confirmed: Verbally with patient Procedure details: Location: R ear Procedure type: irrigation Procedure outcomes: cerumen removed Post-procedure details: Inspection: Some cerumen remaining and no bleeding Hearing quality: Normal Procedure completion: Tolerated Comments: Patient schedued for an nurse visit in 1 week after using [facility]. Dr. Jean aware us Nick Jean MD IN CLINIC/BEDSIDE ORDERABLES Fin al Result * Cytopath-cell enhanced (11/15/2024 5:11 PM EDT) 11/15/2024 5:11 PM EDT 11/16/2024 8:20 AM EDT [facility] - 11/20/2024 12:49 PM EDT ----- ------- Name: Jefry Menon Age/Sex: 34/M : 1990 Unit#: [id number] Attend Dr: Lena Chi [facility] Re11/15/24 Status: DEP REF Location: .LAB Disch: ----- ------- SPEC : [id number] RECD: 11/16/24 STATUS: LAURIE CHRISTIANSON NUM: [id number] JESSICA: 11/15/[address] [facility] [address]: Lena Chi [facility] ENTERED: 11/16/24 SP TYPE: Cytology OTHR DR: Estephanie Larkin MD ORDERED: Cyto-enhanced Diagnosis Urine, cytology: Negative for high-grade urothelial carcinoma. COMMENT: Review of the cytology preparation demonstrates a mildly cellular specimen composed of few squamous and urothelial cells. Mixed inflammatory cells and red blood cells are noted. There is no significant atypia seen. Clinical History Microscopic hematuria Material Received Urine Gross Description Received is 50 cc of clear yellow fluid from which a ThinPrep slide is prepared. IHC S/NG Disclaimer NOTE: Unless otherwise stated, all tissue is formalin-fixed and paraffin-embedded. Some or all of the immunohistochemical tests reported herein may have been developed and their performance characteristics determined by [facility]. They have not been cleared or approved by the U.S. Food and Drug Administration (FDA). However, the FDA has determined that such clearance or approval is not necessary. This laboratory is certified under the Clinical Laboratory Improvement Amendments of 1988 (CLIA) as qualified to perform high complexity clinical laboratory testing. Copies To: Estephanie Larkin MD [address] [address] Lena Chi [facility] [address] [place] [address] [address] [place] [address] [email or web address] Technologies CONTINUED ON NEXT PAGE ----- ------- Name: Jefry Menon Age/Sex: 34/M : 1990 Unit#: [id number] Attend Dr: Lena Chi [facility] Re11/15/24 Status: DEP REF Location: [facility] Disch: ----- ------- SPEC : [id number] RECD: 11/16/24 STATUS: LAURIE CHRISTIANSON NUM: [id number] JESSICA: 11/15/24-[address]: Lena Chi [facility] ENTERED: 11/16/24 SP TYPE: Cytology OTHR DR: Estephanie Larkin MD ORDERED: Cyto-enhanced ----- ------- Signed (signature on file) Nighat Rodriguez MD 11/20/24 1249 ----- ------- END OF REPORT Generic External Data Provider LAB CYTOLOGY PAULINA CHAPA Final Result [facility] [address] [place] [address] [phone] * (ABNORMAL) POCT urinalysis dipstick manually resulted (10/09/2024 10:21 AM EDT) Color, UA Yellow Clarity, UA Clear Glucose, UA Negative Bilirubin, UA Negative Ketones, UA Negative Spec Grav, UA 1.025 Blood, UA Positive(A) Negative, None Detected Comment:LARGE pH, UA 6.5 Protein, UA Negative Urobilinogen, UA 0.2 Leukocytes, UA Negative Negative, Rare, Trace Nitrite, UA Negative Negative, None Detected Urine 10/09/2024 10:2 1 AM EDT Estephanie Storey MD POINT OF CARE TEST EN TER/EDIT ORDERABLES Final Result * XR KUB and Upright 2 Views (10/09/2024 9:48 AM EDT) Anatomical Region Laterality Modality Radiographic Jeanette ging 10/09/2024 9:48 AM EDT Narrative 10/09/2024 10:52 AM EDT [address] [address] XRay Report Signed Patient: Jefry Menon MR#: [id number] 2 : 1990 Acct:[id number] Age/Sex: 34 / M ADM Date: 10/09/24 Loc: HO.HHCX Attending Dr: Estephanie Storey MD Ordering Physician: Estephanie Larkin MD Date of Service: 10/09/24 Procedure(s): XR KUB Accession Number(s): [id number] cc: Estephanie Larkin MD EXAMINATION: XR ABDOMEN KUB CLINICAL INDICATION: Left flank pain for 7 days COMPARISON: None available. TECHNIQUE: AP view of the abdomen. FINDINGS: There appears to be iodinated contrast in the bladder. 2 Vague punctate densities in the left hemipelvis, cephalad to the bladder, could represent phleboliths or distal ureteral stones, bowel content, or other density. No other areas are strongly suggestive stones. Bowel gas pattern is within normal limits. SI joints are unremarkable. Hip joints are unremarkable. XR/XR KUB IMPRESSION: Nonspecific punctate calcific densities in the left hemipelvis could represent phleboliths, distal ureteral stones, or other density Electronically signed by: Swapnil Callahan MD 10/09/2024 10:49 AM EDT RP Dictated By: Swapnil Callahan MD Signed By: <Electronically signed by Swapnil Callahan MD in OV> 10/09/24 1049 DD/ 0948 TD/TT: 10/09/24 1000 Vp Integration: Procedure Note Donotuseinterpreter, Image - 10/09/[address] [address] XRay Report Signed Patient: Kelton Menon#: [id number] 2 : 1990Acct:[id number] Age/Sex: 34 / MADM Date: 10/09/24 Loc: HO.HHCX Attending Dr: Estephanie Storey MD Ordering Physician: Estephanie Larkin MD Date of Service: 10/09/24 Procedure(s): XR KUB Accession Number(s): [id number] cc: Estephanie Larkin MD EXAMINATION: XR ABDOMEN KUB CLINICAL INDICATION: Left flank pain for 7 days COMPARISON: None available. TECHNIQUE: AP view of the abdomen. FINDINGS: There appears to be iodinated contrast in the bladder. 2 Vague punctate densities in the left hemipelvis, cephalad to the bladder, could represent phleboliths or distal ureteral stones, bowel content, or other density. No other areas are strongly suggestive stones. Bowel gas pattern is within normal limits. SI joints are unremarkable. Hip joints are unremarkable. XR/XR KUB IMPRESSION: Nonspecific punctate calcific densities in the left hemipelvis could represent phleboliths, distal ureteral stones, or other density Electronically signed by: Swapnil Callahan MD 10/09/2024 10:49 AM EDT RP Dictated By: Swapnil Callahan MD Signed By: <Electronically signed by Swapnil Callahan MD in OV> 10/09/24 1049 DD/ 0948 TD/TT: 10/09/24 1000 Vp Integration: Estephanie Storey MD IMG XR PROCEDURES Fin al Result from Last 3 Months Insurance MD [place] [id number] Care Teams Lay Out Technician Relationship Specialty Start Date End Date Jane Wilkinson NP [address] [place] [phone] PCP - General Family Medicine 05/16/23
== END 2024-12-08 07:52 | disposition home or self-care (01) ==
LOC: HO.CT 07:51
PROVIDERS: Visit Provider Nurse Practitioner Family
DX: R31.29 Other microscopic hematuria (principal); N20.0 Calculus of kidney; R10.9 Unspecified abdominal pain
CPT/HCPCS: 74176

== ENCOUNTER → 2024-12-08 07:53 | Outpatient (BNV) | payer OTHER, SELFPAY | PROVIDERS: Visit Provider Radiology Diagnostic Radiology | DX: N20.0 Calculus of kidney (principal) | CPT/HCPCS: 74176 ==

== ENCOUNTER 2024-12-12 12:10 | Outpatient (AMB) | payer OTHER, SELFPAY ==
--- NOTE | 2024-12-12 12:10 | A.OFFVIS_ITS ---
Intake Visit Reasons: 1m/CT Intake Note: Patient is present for: telehealth 1mo/CT Urology Medication:tamsulosin Blood Thinner:NONE CT done: 12/11/24 Wire Frame Dipper Required: No Accompanied by: Self / Same As Patient Allergies No Known Allergies Allergy (Verified 12/12/24 13:01) Medication List - Last Reconciled 12/12/24 by JONAH Ramos HPI Comments Details: Jefry is a pleasant 34-year-old male patient of Dr. Sreedhar Storey. He is being followed up on today via video telehealth. Of note, patient was seen approximately 1 month ago as a new patient for nephrolithiasis at which time a CT KUB was ordered for further assessment evaluation. These results reviewed and communicated with the patient today. 12/03 punctate nonobstructing right renal calculi. No obstructive uropathy noted bilaterally. In discussion with the patient today he reports flank pain he had been experiencing has since subsided. He discusses his longstanding history of nephrolithiasis as the age of 20 however never requiring surgical intervention. He currently denies any bothersome urinary issues or concerns. We did discussed further treatment options to include Litholink and labs. He denies urinary urgency, urinary frequency, incontinence, nocturia, hematuria, dysuria, flank pain, foul smelling urine, fever, and or chills. All questions were answered. He otherwise offers no other issues or concerns at this time. Urine cytology: 12/03 Negative for high-grade urothelial carcinoma. Review of Systems Const All systems reviewed & are unremarkable except as noted in HPI and below Physical Exam Const General: cooperative, healthy appearing, comfortable, no acute distress, well developed, alert, awake and Physically active Orientation/consciousness: patient oriented x3 Resp Effort & Inspection: normal respiratory effort and able to speak in complete sentences Neuro General: patient oriented x3 Psych Appearance: grossly normal and well kempt Affect: normal affect Attitude: cooperative Thought content: Normal thought content present Insight: Fair insight present (Psych) Judgement: Fair judgement present (Psych) Telehealth Telehealth [facility] Location of provider rendering services: practice address Location of patient: address on file Patient Identification confirmed using: Name, : Yes Telehealth method: video Patient verbally consented to treatment: Yes Patient verbally consented to billing insurance company: Yes Patient informed of any privacy concerns related to visit: Yes Minutes spent on Phone/Video with Pt.: 15 Results Reviewed Results Reviewed: Date of Service: 12/08/24 Procedure(s): CT kidney stone Findings: The lack of intravenous contrast hampers the evaluation of solid organs and the ability to detect and characterize soft tissue abnormalities. Normal lung bases. Punctate calyceal calculus right kidney lower pole, no additional urolithiasis, no obstructive uropathy. Gallbladder, solid organs and urinary bladder are unremarkable. GI tract demonstrates nothing unusual, normal appendix. Unremarkable vasculature, no adenopathy, no ascites or pneumoperitoneum. Normal abdominopelvic wall. Unremarkable osseous structures. Impression: Punctate nonobstructing right renal calculus. Assessment & Plan Assessment & Plan (1) Nephrolithiasis: Code(s): N20.0 - Calculus of kidney Category: Medical (2) Microscopic hematuria: Code(s): R31.29 - Other microscopic hematuria Category: Medical Plan Recent CT results reviewed with the patient today; as noted above. We discussed the importance of adequate hydration relation to nephrolithiasis as well as overall health and well-being. We discussed adding 1 oz of lemon juice to water daily. He currently denies any bothersome urinary issues or concerns. He reports be happy with current voiding parameters. We did discussed further workup to include Litholink and labs. Will continue with surveillance monitoring at this time. Will obtain renal ultrasound in 6 months. Follow-up in 6 months with imaging; or sooner with any issues, concerns, and or questions. Orders: Orders US renal BI 6 Months N20.0 - Calculus of kidney Patient Instructions: The patient had an opportunity to ask questions regarding the treatment plan. All questions were answered. Physical exam, labs, and imaging were discussed and reviewed in detail. As well as risks, benefits, and discussion of treatment choices. No major barriers to understanding were identified. The patient expressed understanding and agreement with the above treatment plan. The patient was made aware they should contact our office by phone for worsening of their current condition, the appearance of new symptoms, or with any questions or concerns. Compliance is encouraged with any medications and follow up testing that is ordered. It is a privilege to be allowed the opportunity to participate in? your urological care.? Again, if you have any questions or concerns If you have any questions or concerns please do not hesitate to contact me. The office is [phone]. This note is constructed using voice recognition software. While every effort rascon s been made to ensure accuracy naphthol soaping machine operator errors may have been included. Yours sincerely, JONAH Ramos Coding Level of Care Code Tele Est Pt Level 3 (78565) Diagnoses Nephrolithiasis N20.0 Microscopic hematuria R31.29
--- OUTSIDE RECORDS SUMMARY | 2024-12-12 14:47 | XMS_ITS | Encounter Summary ---
Author Organization [employer] Address [address] [facility] 7 [place] [address] Care Team Providers Care Obstetrician And Gynaecologist Name Role Phone Jane Wilkinson NP Primary Care Provider [phone] Encounter Details Date Type Department Care Team (Late st Contact Info) Description 11/01/2024 Orders Only [facility] [address] [place] [address] Estephanie Larkin MD [address] [place] [address] Kidney stone (Primary Dx) Social History Tobacco [...] kidney documented in this encounter Care Teams Obstetrician And Gynaecologist Relationship Specialty Start Date End Date Jane Wilkinson NP [address] [place] [address] PCP - General Family Medicine 05/16/23 documented as of this encounter
--- OUTSIDE RECORDS SUMMARY | 2024-12-12 14:47 | XMS_ITS | Clinical Summary ---
Author Organization [employer] Address [address] [facility] [address] [place] [address] Care Team Providers Care Medical Registrar Name Role Phone Jane Wilkinson NP Primary Care Provider [phone] Allergies No known active allergies Medications tamsulosin [...] Description 11/20/2024 10:20 AM EDT Office Visit [facility] [address] [place] [address] Nick Jean MD Impacted cerumen of right ear (Primary Dx); Non-recurrent acute suppurative otitis media of right ear without spontaneous rupture of tympanic membrane; Elevated blood pressure reading in office without diagnosis of hypertension 11/20/2024 Travel 11/15/2024 Orders Only GENERIC EXTERNAL DATA DEPARTMENT Provider, Generic External Data 11/13/2024 Telephone [facility] [address] [place] [address] Jane Wilkinson NP Med Refill; Medication Question 11/01/2024 Orders Only [facility] [address] [place] [phone] Estephanie Larkin MD Kidney stone (Primary Dx) 11/01/2024 Telephone [facility] [address] [place], [place] [phone] Estephanie Larkin MD 10/09/2024 10:00 AM EDT Office Visit [facility] [address] [place] [address] Estephanie Larkin MD Left flank pain; Kidney stone 10/09/2024 Results Follow-Up [facility] [address] [place] [address] Estephanie Larkin MD XR KUB and Upright 2 Views 10/09/2024 Orders Only [facility] [address] [place] [address] Estephanie Larkin MD Kidney stone (Primary Dx) [...] Procedure Name Priority Date/Time Associated Diagnosis Comments [place] REMOVAL IMPACTED CERUMEN IRRIGATION/LVG UNILAT Routine 11/20/2024 [...] Recently Relevant to Health Maintenance Results * [place] REMOVAL IMPACTED CERUMEN IRRIGATION/LVG UNILAT (11/20/2024 11:12 [...] removal and pain Alternatives discussed: Alternative treatment [place] protocol: Procedure explained and questions answered to [...] 5:11 PM EDT 11/16/2024 8:20 AM EDT [facility] - 11/20/2024 12:49 PM EDT ----- ------- Name: Jefry Menon Age/Sex: 34/M : 1990 Unit#: [id number] Attend Dr: Lena Chi [facility] Re11/15/24 Status: DEP REF Location: .LAB Disch: ----- ------- SPEC : [id number] RECD: 11/16/24 STATUS: LAURIE CHRISTIANSON NUM: [id number] JESSICA: 11/15/[address] [facility] [address]: Lena Chi [facility] ENTERED: 11/16/24 SP TYPE: Cytology OTHR [...] developed and their performance characteristics determined by [facility]. They have not been cleared or approved by the U.S. Food and Drug Administration (FDA). However, the FDA has determined that such clearance or approval is not necessary. This laboratory is certified under the Clinical Laboratory Improvement Amendments of 1988 (CLIA) as qualified to perform high complexity clinical laboratory testing. Copies To: Estephanie Larkin MD [address] [address] Lena Chi [facility] [address] [place] [address] [address] [place] [address] [email or web address] CONTINUED ON NEXT PAGE ----- ------- Name: Jefry Menon Age/Sex: 34/M : 1990 Unit#: [id number] Attend Dr: Lena Chi [facility] Re11/15/24 Status: DEP REF Location: [facility] Disch: ----- ------- SPEC : [id number] RECD: 11/16/24 STATUS: LAURIE CHRISTIANSON NUM: [id number] JESSICA: 11/15/24-[address]: Lena Chi [facility] ENTERED: 11/16/24 SP TYPE: Cytology OTHR DR: Estephanie Larkin MD ORDERED: Cyto-enhanced ----- ------- Signed (signature on file) Nighat Rodriguez MD 11/20/24 1249 ----- ------- END OF REPORT Generic External Data Provider LAB CYTOLOGY PAULINA CHAPA Final Result [facility] [address] [place] [address] [phone] * (ABNORMAL) POCT urinalysis dipstick manually [...] AM EDT Narrative 10/09/2024 10:52 AM EDT [address] [address] XRay Report Signed Patient: Jefry Menon MR#: [id number] 2 : 1990 Acct:[id number] Age/Sex: 34 / M ADM Date: 10/09/24 Loc: HO.HHCX Attending Dr: Estephanie Storey MD Ordering Physician: Estephanie Larkin MD Date of Service: 10/09/24 Procedure(s): XR KUB Accession Number(s): [id number] cc: Estephanie Larkin MD EXAMINATION: XR ABDOMEN [...] 10/09/24 1049 DD/ 0948 TD/TT: 10/09/24 1000 Collar Worker: Procedure Note Donotuseinterpreter, Image - 10/09/[address] [address] XRay Report Signed Patient: Kelton Menon#: [id number] 2 : 1990Acct:[id number] Age/Sex: 34 / MADM Date: 10/09/24 Loc: HO.HHCX Attending Dr: Estephanie Storey MD Ordering Physician: Estephanie Larkin MD Date of Service: 10/09/24 Procedure(s): XR KUB Accession Number(s): [id number] cc: Estephanie Larkin MD EXAMINATION: XR ABDOMEN [...] 10/09/24 1049 DD/ 0948 TD/TT: 10/09/24 1000 Collar Worker: Estephanie Storey MD IMG XR PROCEDURES Fin al Result from Last 3 Months Insurance MD [place] [id number] Care Teams Medical Registrar Relationship Specialty Start Date End Date Jane Wilkinson NP [address] [place] [address] PCP - General Family Medicine 05/16/23
--- OUTSIDE RECORDS SUMMARY | 2024-12-12 14:47 | XMS_ITS | Encounter Summary ---
Author Organization [employer] Address [address] [facility] 7 [place] [address] Care Team Providers Care Plaster Mold Maker Name Role Phone Rizwana Ivan UNDERWRITING SUPPORT SPECIALIST Primary Care Provider Xochilt Falguni Crow BANK CREDIT CARD COLLECTION CLERK Primary Care Provider [phone] Jane Wilkinson BANK CREDIT CARD COLLECTION CLERK Primary Care Provider [phone] Reason for Visit * Reason Onset Date Comments new pt waiting appt 09/23/2022 Encounter Details Date Type Department Care Team (Late st Contact Info) Description 09/23/[address] [facility] [address] [place] [address] Morgan Leal DDS [address] [place] [address] new pt waiting appt Social History Tobacco [...] Patient has been on waiting list in [facility] since 04/2021. He is checking in on status of appt and would like to be scheduled DR documented in this encounter Plan of Treatment Not on file documented as of this encounter Visit Diagnoses Not on filedocumented in this encounter Care Teams Plaster Mold Maker Relationship Specialty Start Date End Date Rizwana Ivan FNP PCP - General Family Medicine 12/07/21 01/13/23 Falguni Copeland NP [address] [place] [address] PCP - General Family Medicine 01/14/23 05/15/23 Jane Wilkinson NP [address] [place] [address] PCP - General Family Medicine 05/16/23 documented as of this encounter
--- OUTSIDE RECORDS SUMMARY | 2024-12-12 14:47 | XMS_ITS | Encounter Summary ---
Author Organization [employer] Address [address] [facility] 7 [place] [address] Care Team Providers Care Gynecologist Name Role Phone Rizwana IvanP Primary Care Provider Xochilt Falguni Crow BLOOD DONOR RECRUITER SUPERVISOR Primary Care Provider [phone] Jane Wilkinson BLOOD DONOR RECRUITER SUPERVISOR Primary Care Provider [phone] Encounter Details Date Type Department Care Team (Late st Contact Info) Description 12/23/2022 Abstract [facility] [address] [place] [address] Flaquito Hernandez DMD [address] [place] [address] Social History Tobacco Use Types Packs/Day Years [...] on filedocumented in this encounter Care Teams Gynecologist Relationship Specialty Start Date End Date Rizwana Ivan FNP PCP - General Family Medicine 12/07/21 01/13/23 Falguni Copeland NP [address] [place] [address] PCP - General Family Medicine 01/14/23 05/15/23 Jane Wilkinson NP [address] [place] [address] PCP - General Family Medicine 05/16/23 documented as of this encounter
--- OUTSIDE RECORDS SUMMARY | 2024-12-12 14:47 | XMS_ITS | Encounter Summary ---
Author Organization [employer] Address [address] [facility] 7 [place] [address] Care Team Providers Care Sales Planning Analyst Name Role Phone Rizwana IvanP Primary Care Provider Xochilt Falguni Crow COGNOS REPORT DEVELOPER Primary Care Provider [phone] Jane Wilkinson COGNOS REPORT DEVELOPER Primary Care Provider [phone] Encounter Details Date Type Department Care Team (Late st Contact Info) Description 12/30/2022 Abstract [facility] [address] [place] [address] Flaquito Hernandez DMD [address] [place] [address] Social History Tobacco Use Types Packs/Day Years [...] on filedocumented in this encounter Care Teams Sales Planning Analyst Relationship Specialty Start Date End Date Rizwana Ivan FNP PCP - General Family Medicine 12/07/21 01/13/23 Falguni Copeland NP [address] [place] [address] PCP - General Family Medicine 01/14/23 05/15/23 Jane Wilkinson NP [address] [place] [address] PCP - General Family Medicine 05/16/23 documented as of this encounter
== END 2024-12-12 13:22 | disposition home or self-care (01) ==
LOC: HO.HUSH 12:10
PROVIDERS: Visit Provider Nurse Practitioner Family
DX: N20.0 Calculus of kidney (principal); R31.29 Other microscopic hematuria
CPT/HCPCS: 99213